=== PATIENT | male | born 1990 | race Caucasian/White ===

== ENCOUNTER 2017-04-22 22:31 | Emergency (ER) | payer SELFPAY ==
[~2017-04-22] VITALS: Ht 187.9 cm; Wt 108.4 kg
[2017-04-22] MEDS ORDERED: CLINDAMYCIN HC300 MG PO (23:43)
[2017-04-22] MEDS ORDERED: Motrin,Rufen800 MG PO (23:43)
== END 2017-04-23 00:04 | disposition home or self-care (01) ==
LOC: ED 22:31
DX: K02.9 Dental caries, unspecified (principal); F17.200 Nicotine dependence, unspecified, uncomplicated

== ENCOUNTER 2017-05-28 20:36 | Emergency (ER) | payer SELFPAY ==
[~2017-05-28] VITALS: Ht 187.9 cm; Wt 108.9 kg
[~2017-05-28 20:36] MED LIST: CLINDAMYCIN HC300 MG PO; Motrin,Rufen800 MG PO
== END 2017-05-28 21:50 | disposition home or self-care (01) ==
LOC: ED 20:36
DX: S01.01XA Laceration without foreign body of scalp, initial encounter (principal); F17.200 Nicotine dependence, unspecified, uncomplicated; W18.09XA Striking against other object with subsequent fall, initial encounter; Y93.89 Activity, other specified; Y92.098 Other place in other non-institutional residence as the place of occurrence of the external cause; Y99.9 Unspecified external cause status

== ENCOUNTER 2017-06-07 16:16 | Emergency (ER) | payer SELFPAY ==
[~2017-06-07] VITALS: Ht 187.9 cm; Wt 108.9 kg
== END 2017-06-07 16:31 | disposition home or self-care (01) ==
LOC: ED 16:16
DX: S01.81XD Laceration without foreign body of other part of head, subsequent encounter (principal); W19.XXXD Unspecified fall, subsequent encounter; F17.200 Nicotine dependence, unspecified, uncomplicated; Z79.899 Other long term (current) drug therapy

== ENCOUNTER 2018-01-17 19:58 | Emergency (ER) | payer SELFPAY ==
[~2018-01-17] VITALS: Wt 136.1 kg
[2018-01-17 20:30] LABS: BASO % 0.2 % (0.0-1.0); HEMATOCRIT 45.6 % (42.0-52.0); HEMOGLOBIN 15.8 g/dl (14.0-18.0); LYMPH # 1.3 10*3/uL (1.3-4.4); LYMPH % 7.6 % (27.0-41.0); MEAN CELL VOLUME 86.9 fl (80.0-94.0); MEAN CORPUSCULAR HGB 30.1 pg (27.0-31.0); MEAN CORPUSCULAR HGB CONC 34.6 g/dl (33.0-37.0); MEAN PLATELET VOLUME 10.3 fl (9.6-12.3); MONO # 1.5 10*3/uL (0.1-1.0); MONO % 8.9 % (3.0-9.0); NEUT # 13.9 10*3/uL (2.3-7.9); NEUT % 82.9 % (47.0-73.0); PLATELET COUNT AUTOMATED 285 10*3/uL (130-400); RED BLOOD COUNT 5.25 10*6/uL (4.50-5.90); RED CELL DISTRI WIDTH 13.5 % (0-14.5); WHITE BLOOD COUNT 16.8 10*3/uL (4.8-10.8)
[2018-01-17 20:42] LABS: BILIRUBIN 1+ (NEGATIVE); BLOOD 1+ (NEGATIVE); CLARITY SL CLOUDY (CLEAR); COLOR YELLOW (YELLOW); GLUCOSE NEGATIVE (NEGATIVE); KETONE TRACE (NEGATIVE); LEUKO ESTERASE NEGATIVE (NEGATIVE); NITRITE NEGATIVE (NEGATIVE); UROBILINOGEN >= 8.0 E.U./dl (0.2-1.0)
[2018-01-17 20:44] LABS: ALBUMIN 3.9 gm/dl (3.1-4.5); ALKALINE PHOSPHATASE 65 U/L (45-117); BUN 12 mg/dl (7-24); CHLORIDE 103 mmol/L (98-107); CREATININE 1.08 mg/dL (0.70-1.30); POTASSIUM 3.6 mmol/L (3.5-5.1); SGOT/AST 10 IU/L (3-35); SGPT/ALT 27 U/L (12-78); SODIUM 136 mmol/L (136-145); TOTAL PROTEIN 7.9 gm/dL (6.4-8.2)
[2018-01-17 20:48] LABS: BACTERIA 2+; MUCOUS 2+
[2018-01-17 20:49] LABS: RBC 16-20 rbc/hpf (0-2)
[2018-01-17] MEDS ORDERED: AMOXICILLIN500 M2 PO (22:07)
== END 2018-01-17 22:14 | disposition home or self-care (01) ==
LOC: ED 19:58
PROVIDERS: Emergency Medicine
DX: J02.0 Streptococcal pharyngitis (principal); R11.2 Nausea with vomiting, unspecified; F17.200 Nicotine dependence, unspecified, uncomplicated

== ENCOUNTER 2018-09-27 22:42 | Emergency (ER) | payer SELFPAY ==
[~2018-09-27] VITALS: Ht 185.4 cm; Wt 129.3 kg
--- NOTE | ~2018-09-27 | EKG ---
[place], [place] ELECTROCARDIOGRAM REPORT NAME: KEVIN GARCIA JR UNIT #: [id number] ROOM: DOCTOR: EPIPHANY DRAFT REPORT BIRTHDATE: [birth year] [facility] Test Date: 2018-09-27 Test Time: 22:43:14 Pat Name: KEVIN GARCIA Department: Room: Gender: Balance Engineer: Jayjay Gramajo : 1990 Requested By: ROSS REARDON Order Number: [id number] Reading MD: Omer Gonzalez MD Measurements Intervals [place] Rate: 80 P: 21 [place]: 174 QRS: 51 QRSD: 98 T: 17 QT: 346 QTc: 400 Interpretive Statements Sinus rhythm Electronically Signed On 10-02-2018 9:38:47 PST by Omer Gonzalez MD CM:EKGRPT:ELECTROCARDIOGRAM REPORT [id number] ROSS MARTINEZ DRAFT REPORT ROSS REARDON DO
[~2018-09-27 22:42] MED LIST changes: +AMOXICILLIN500 M2 PO; +AUGMENTIN 875-875 MG PO
[2018-09-27 23:05] LABS: BASO % 0.4 % (0.0-1.0); EOS # 0.1 10*3/uL (0.0-0.4); EOS % 1.4 % (1.0-4.0); HEMATOCRIT 44.9 % (42.0-52.0); HEMOGLOBIN 15.3 g/dl (14.0-18.0); LYMPH # 2.7 10*3/uL (1.3-4.4); MEAN CELL VOLUME 88.2 fl (80.0-94.0); MEAN CORPUSCULAR HGB 30.1 pg (27.0-31.0); MEAN CORPUSCULAR HGB CONC 34.1 g/dl (33.0-37.0); MEAN PLATELET VOLUME 10.7 fl (9.6-12.3); MONO # 0.8 10*3/uL (0.1-1.0); MONO % 10.1 % (3.0-9.0); NEUT # 4.6 10*3/uL (2.3-7.9); PLATELET COUNT AUTOMATED 350 10*3/uL (130-400); RED BLOOD COUNT 5.09 10*6/uL (4.50-5.90); RED CELL DISTRI WIDTH 13.3 % (0-14.5); WHITE BLOOD COUNT 8.3 10*3/uL (4.8-10.8)
[2018-09-27] MEDS ORDERED: VITAMIN D400 UNIT/1 PO (23:11)
[2018-09-27 23:15] LABS: ACT PARTIAL THROMBO TIME 25.7 SECONDS (20.8-31.5); INTERNATIONAL NORM RATIO 0.9 (2.0-3.5)
[2018-09-27 23:25] LABS: ALBUMIN 3.7 gm/dl (3.1-4.5); ALKALINE PHOSPHATASE 79 U/L (45-117); BUN 12 mg/dl (7-24); CHLORIDE 107 mmol/L (98-107); CREATININE 0.96 mg/dL (0.70-1.30); SGOT/AST 27 IU/L (3-35); SGPT/ALT 49 U/L (12-78); SODIUM 140 mmol/L (136-145); TOTAL PROTEIN 8.1 gm/dL (6.4-8.2)
[2018-09-27 23:27] LABS: TROPONIN I < 0.015 ng/ml (<0.045)
== END 2018-09-28 00:10 | disposition home or self-care (01) ==
LOC: ED 22:42
PROVIDERS: Student in an Organized Health Care Education/Training Program
DX: R07.89 Other chest pain (principal); Z79.899 Other long term (current) drug therapy